=== PATIENT | female | born 1945 | race Caucasian/White ===

== ENCOUNTER 2016-10-01 09:47 | Inpatient (IN) | payer OTHER, MEDICARE ==
[~2016-10-01] VITALS: Ht 157.5 cm; Wt 86.4 kg
[2016-10-01 10:40] LABS: UDS - AMPHET NEGATIVE QUAL (NEGATIVE); UDS - BARB NEGATIVE QUAL (NEGATIVE); UDS - BENZO NEGATIVE QUAL (NEGATIVE); UDS - COCAINE NEGATIVE QUAL (NEGATIVE); UDS - METH NEGATIVE QUAL (NEGATIVE); UDS - OPIATE NEGATIVE QUAL (NEGATIVE); UDS - PCP NEGATIVE QUAL (NEGATIVE); UDS - THC NEGATIVE QUAL (NEGATIVE)
[2016-10-01 10:40] LABS: BASOPHILS 0.3 % (0.0-2.0); EOSINOPHILS 6.1 % (0-7); HEMATOCRIT 34.3 % (36.0-48.0); HEMOGLOBIN 11.3 g/dL (12-16); IMMATURE GRANULOCYTES 0.4 % (0-5); LYMPHOCYTES 12.4 % (15-50); MCH 34.2 pg (26.0-34.0); MCHC 32.9 g/dL (31.0-37.0); MCV 103.9 fL (80.0-100.0); MEAN PLATELET VOLUME 9.1 fL (7.4-10.4); MONOCYTES 14.9 % (2-11); NEUTROPHILS 65.9 % (40-80); PLATELET COUNT 255 10x3/uL (130-400); RDW 13.9 % (11.5-14.5); WBC 7.5 10x3/uL (4.8-10.8)
[2016-10-01 10:58] LABS: ALBUMIN 2.7 g/dL (3.4-5.0); ALKALINE PHOSPHATASE 48 U/L (46-116); ALT (SGPT) 20 U/L (10-68); BILIRUBIN - TOTAL 0.38 mg/dL (0.2-1.3); CALC OSMOLALITY 265 mosm/kg (275-300); CALCIUM 8.4 mg/dL (8.5-10.1); CARBON DIOXIDE 29.6 mmol/L (21.0-32.0); CHLORIDE - SERUM 96 mmol/L (98-107); CREATININE - SERUM 0.6 mg/dL (0.6-1.3); GLUCOSE 94 mg/dL (74-106); MAGNESIUM - SERUM 1.5 mg/dL (1.8-2.4); PROTEIN - SERUM 6.5 g/dL (6.4-8.2); SODIUM 134 mmol/L (136-145); UREA NITROGEN 7 mg/dL (7-18); eGFR NON AFRICAN AMERICAN > 90 mL/min (90-120)
[2016-10-01 11:06] LABS: APPEARANCE HAZY (CLEAR); BILIRUBIN NEGATIVE (NEGATIVE); COLOR YELLOW (YELLOW); GLUCOSE NEGATIVE (NEGATIVE); KETONE NEGATIVE (NEGATIVE); LEUKOCYTE ESTERASE NEGATIVE (NEGATIVE); NITRITE NEGATIVE (NEGATIVE); PROTEIN NEGATIVE (NEGATIVE); UROBILINOGEN NORMAL (NORMAL)
[2016-10-01 11:07] LABS: BACTERIA FEW /hpf (NONE SEEN); EPITHELIAL CELLS OCC /hpf (0-5); RED CELLS - URINE 0-5 /hpf (0-5); WHITE CELLS - URINE OCC /hpf (0-5)
[2016-10-01 14:29] VITALS: BP 178/53; BMI 33.5
[2016-10-01] MEDS ORDERED: LISINOPRIL10 MG PO (14:54)
[2016-10-01] MEDS ORDERED: ATARAX 25 MG TA25 MG PO (14:55)
[2016-10-01] MEDS ORDERED: PROTONIX40 MG PO (14:57)
[2016-10-01] MEDS ORDERED: COREG25 MG PO (14:57)
[2016-10-01] MEDS ORDERED: ATIVAN1 MG (14:58)
[2016-10-01] MEDS ORDERED: ULTRAM50 MG PO (15:04)
--- NOTE | 2016-10-01 15:49 | NUR ---
PATIENT ARRIVED FROM ER VIA STRETCHER. CO BEING WEAK. WARM AND DRY. ON ASSESSMENT, PERINEAL AREA AND UNDER ABDOMEN FOLDS, EXTROCIATION NOTED. ON CRISTEL LEGSHEALED RASH AND SORES NOTED. PATIENT CONFUSED AT TIMES. BANANA BAG HUNG. WILL CONTINUE TO MONITOR.
[2016-10-01 20:00] VITALS: BP 182/84
--- NOTE | 2016-10-01 20:54 | NUR ---
PT IS VERY DEMEANDING. ACTS ENTITLED. PT WILL NOT TAKE NO FOR AN ANSWER. PT REQUESTED ATIVAN. PT INFORMED THAT ATIVAN NOT PART OF EMAR. PT INFORMED AGAIN THAT MEDICATION NOT PART OF EMAR. PT THEN BEGAN ASKING FOR ITEMS THAT ARE NOT STOCKED ON THE UNIT. PT THEN STATED THAT THE NURSE TODAY TOLD HER THAT SHE COULD HAVE IT. PT WAS HANDED ROOM PHONE AND INFORMED THAT FOR ANY FURTHER QUESTIONS SHE WOULD NEED TO DIAL 1441 AND SPEAK TO THE TYRE FINISHER AND EXAMINER.
[2016-10-02] VITALS: BP 196/79
[2016-10-02 04:00] VITALS: BP 183/81
[2016-10-02 05:46] LABS: BASOPHILS 0.5 % (0.0-2.0); EOSINOPHILS 6.7 % (0-7); HEMATOCRIT 32.7 % (36.0-48.0); HEMOGLOBIN 10.3 g/dL (12-16); IMMATURE GRANULOCYTES 0.3 % (0-5); LYMPHOCYTES 19.3 % (15-50); MCH 33.4 pg (26.0-34.0); MCHC 31.5 g/dL (31.0-37.0); MEAN PLATELET VOLUME 9.2 fL (7.4-10.4); MONOCYTES 18.6 % (2-11); NEUTROPHILS 54.6 % (40-80); PLATELET COUNT 290 10x3/uL (130-400); RBC 3.08 10x6/uL (4.00-5.40); RDW 14.4 % (11.5-14.5); WBC 6.4 10x3/uL (4.8-10.8)
[2016-10-02 05:57] LABS: ALBUMIN 2.3 g/dL (3.4-5.0); ALKALINE PHOSPHATASE 47 U/L (46-116); ALT (SGPT) 20 U/L (10-68); CALC OSMOLALITY 266 mosm/kg (275-300); CALCIUM 7.9 mg/dL (8.5-10.1); CARBON DIOXIDE 29.4 mmol/L (21.0-32.0); CHLORIDE - SERUM 99 mmol/L (98-107); CREATININE - SERUM 0.6 mg/dL (0.6-1.3); GLUCOSE 112 mg/dL (74-106); PROTEIN - SERUM 6.1 g/dL (6.4-8.2); SODIUM 134 mmol/L (136-145); UREA NITROGEN 7 mg/dL (7-18); eGFR NON AFRICAN AMERICAN > 90 mL/min (90-120)
[2016-10-02 06:00] LABS: POTASSIUM - SERUM 4.5 mmol/L (3.5-5.1)
[2016-10-02 06:14] LABS: MCV 106.2 fL (80.0-100.0)
--- NOTE | 2016-10-02 07:28 | HP ---
PATIENT: TANISHA RICHEY MEDICAL RECORD: [id number] ACCOUNT: [id number] LOCATION:[address] : [birth year] ADMISSION DATE: 10/01/16 HISTORY AND PHYSICAL EXAMINATION DATE OF ADMISSION: 10/01/2016 REASON FOR ADMISSION: Generalized weakness, confusion and alcohol abuse. HISTORY OF PRESENT ILLNESS: This is a 70-year-old female who I have taken care of for many years. She has a long history of anxiety, depression and chronic back pain. She has been getting weaker and weaker, more confused over the last few weeks to months. She apparently drinks a lot of alcohol, but I really did not know that she does. She probably drinks about 4 ounces of vodka a day. She states she has only been doing that for several weeks. Family says it has been going on for a lot longer. The buys it and admits that he does, so he certainly knows how much he is buying. She went to [facility] weeks ago because the family was trying to get her in to see geriatric specialists up there. She went to the ER, basically they told her she had a UTI and discharge her home. Family states she is becoming more disoriented and confused. They state she complains of being out of breath just standing. She cannot walk very far at all without being short of breath. She is not bathing. She is not taking care of herself. She has increased swelling to her face and body. She does not want to live the house. She has been on antidepressants for many years and apparently when living in [place] 10-12 years ago, she had significant mental health issue ____, but I do not have any records about that. She went to a walk-in clinic out [address] a week or more ago and was treated for a UTI. The quantity was insufficient to culture. Her bought her a new lift chair to help her get up. She was on it last night. She was confused, did not know how to use it and she somehow slid out of the chair on to the floor and she stayed there basically all night long. The report is she has had increased weakness that has really gotten severe in the last few days. In the ER, potassium was 3.0. Urinalysis looked okay. Alcohol level was 15 with 0-10 being considered normal. She is admitted for all her magnesium level was low. She is admitted for electrolyte imbalance, alcohol abuse, depression and weakness. PAST MEDICAL AND SURGICAL HISTORY: She has had left knee replacement for arthritis. She has had ORIF of a right ankle fracture. She has a history of anxiety and depression. She had a benign lumpectomy in July 2010. She had back surgery over 30 years ago. She has a chronic back pain followed by Dr. Poe. MRI in 2009 showing arthritis, bulging discs, herniated disc at L3-L4, mild spinal stenosis and old compression fracture at L2. In May 2012, she was admitted to [facility] for chest pain. She had a cath showing normal arteries, but showed an "apical ballooning" consistent with takotsubo syndrome. Her echo showed EF in the 20%. She had an EGD showing a grade II esophagitis due to reflux and some gastritis. Ultrasound of the abdomen showed gallstones with no acute cholecystitis. She has had an appendectomy and hysterectomy as well. HOME MEDICATIONS: Carvedilol 25 mg twice a day, lisinopril 10 mg twice a day, Ativan 1 mg t.i.d. p.r.n. anxiety, hydroxyzine 25 mg tablets one q.4 hours p.r.n. itching, tramadol 50 mg 1 p.o. q.4 hours p.r.n. pain, (she used to be on Percocet and then taking down to hydrocodone and now on tramadol) and Protonix 40 mg twice a day. HISTORY AND PHYSICAL [id number] TANISHA RICHEY ALLERGIES: CODEINE, DEMEROL, CEPHALEXIN AND TETRACYCLINE. HABITS: Quit smoking in 1982. Alcohol use, the story I have always gotten is she drinks an alcoholic beverage a day, but finding out otherwise now. SOCIAL HISTORY: She does not work. She lives with her . FAMILY HISTORY: Father in a car wreck. Mother had hypertension, heart disease and arthritis. One brother with hypertension and diabetes. Another brother with hypertension. REVIEW OF SYSTEMS: GENERAL: She is gaining weight, has had an increased swelling. HEENT: No particular sinus or allergy problems. RESPIRATORY: No history of emphysema or COPD. CARDIAC: No coronary artery disease. She did have the takotsubo syndrome in 2011. GASTROINTESTINAL: She had an EGD done in 2011. No hep C done then. MUSCULOSKELETAL: She has had arthritic aches and pains and joint replacement and the back as mentioned above. NEUROLOGIC: No seizures or migraine headaches. PSYCHIATRIC: She has anxiety and depression. PHYSICAL EXAMINATION: VITAL SIGNS: Temperature 98.2, pulse 83, respirations 18 and blood pressure 178/53. GENERAL: This is an obese white female, who does not appear to be in acute distress. She is awake and alert. SKIN: Warm and dry. HEENT: Grossly within normal limits. NECK: Supple, no JVD. HEART: Regular rate and rhythm without murmur. LUNGS: A few scattered rales. ABDOMEN: Obese, soft, nontender at this time. I do not feel enlarged liver. EXTREMITIES: She has 1-2+ pitting edema and did not get her up to walk. LABORATORY DATA: CBC with a white count of 7500, hemoglobin 11.3, hematocrit 34.3, MCV is high at 103.9. Sodium 134, potassium 3.0, chloride 96, CO2 of 29, BUN 7, creatinine 0.6, glucose 94, calcium 8.4, magnesium low at 1.5. Total bilirubin normal at 0.38. AST 30 and ALT 20. Alkaline phosphatase is 48. Albumin is low at 2.7. Alcohol level is 15.0 (normal 0.0-10.0). Urine drug screen is negative for everything even though she reportedly takes lorazepam 3 times a day. Urinalysis with trace amount of blood, and few bacteria. DIAGNOSTIC DATA: No x-rays were done. ASSESSMENT: 1. Hypokalemia. 2. Hypomagnesemia. 3. Alcohol abuse. 4. Generalized weakness. 5. Depression. PLAN: We will replace potassium and replace magnesium. We will find out who did EGD in the past and ask GI to see. We will consider a consult to HISTORY AND PHYSICAL [id number] TANISHA RICHEY psychiatry. I think she has severe depression at this time. She is given a banana bag and we will be watching her closely for DTs. Other tests and procedures as warranted. TRANSINT:[id number] Voice Confirmation ID: [id number] DOCUMENT ID: [id number] MARY AMAYA MD at 0728 CC: [id number] DICTATION DATE: 10/01/16 185 WAREHOUSE ATTENDANT: 10/01/162112 ADM IN [facility] [address] [place] [address]
[2016-10-02] MEDS ORDERED: ATIVAN1 MG PO (08:06)
[2016-10-02 08:08] VITALS: BP 212/78
[2016-10-02 12:27] VITALS: BP 146/47
[2016-10-02 12:32] VITALS: Ht 157.5 cm; Wt 86.4 kg
[2016-10-02 16:00] VITALS: BP 154/64
[2016-10-02 20:00] VITALS: BP 163/62
--- NOTE | 2016-10-02 20:38 | NUR ---
PT LYING IN BED. DEMENDING ATIVAN AGAIN. EXPLAINED TO PT THAT SHE HAD ATIVAN AT 5PM. PT STATED THAT SHE WAS SUPPOSED TO HAVE IT EVERY 4 HOURS. PT WAS INFORMED THAT ATIVAN WAS ORDERED PRN. AND THAT MENT THAT IT WAS ONLY TO BE GIVEN IF THE PT REQUESTED IT, NOT THAT IT WOULD BE BROUGHT TO HER. PT THEN ASKED AGAIN WHEN SHE COULD HAVE IT. PT WAS INFORMED THAT SHE WASNT ELIGEBLE FOR IT UNTILL 9PM. PT THEN STATED THAT SHE WANTED IT. PT THEN WAS GIVEN APLICATION OF TEMOVATE, WHICH TURNED INTO AN ENTIRE BODY APPLICATION. PT STATED THAT IT NEEDED TO BE PUT ON HER "SORES". PT WAS OBSERVED UPON ENTERING THE ROOM TO BE PICKING AT HER SKIN. THE SORES THAT PT SPOKE OF ARE ONLY PRESENT ON AREAS OF THE BODY THAT PT CAN REACH, SHOULDERS, LOWER BACK, FRONT OF LEGS. PTS UPPER MIDDLE BACK POSSESED NO SORES OR WOUNDS. ENTIRE TUBE OF CREAM WAS USED IN THE PROCESS
--- NOTE | 2016-10-02 21:59 | NUR ---
INFORMED BY AID THAT PT IS NOW CONSERNED THAT NURSING STAFF ARE TALKING ABOUT HER WITHOUT HER KNOWLEDGE.
[2016-10-03] VITALS: BP 159/68
--- NOTE | 2016-10-03 00:10 | NUR ---
SHEAR OPERATOR AUTOMATIC AT BEDSIDE TO OBTAIN VITALS, CALL LIGHT IN REACH. WILL CONTINUE WITH PLAN OF CARE.
[2016-10-03 05:39] LABS: BASOPHILS 0.4 % (0.0-2.0); EOSINOPHILS 10.7 % (0-7); HEMATOCRIT 30.2 % (36.0-48.0); HEMOGLOBIN 9.7 g/dL (12-16); IMMATURE GRANULOCYTES 0.1 % (0-5); LYMPHOCYTES 19.5 % (15-50); MCH 34.2 pg (26.0-34.0); MCHC 32.1 g/dL (31.0-37.0); MCV 106.3 fL (80.0-100.0); MEAN PLATELET VOLUME 9.1 fL (7.4-10.4); NEUTROPHILS 52.3 % (40-80); PLATELET COUNT 253 10x3/uL (130-400); RBC 2.84 10x6/uL (4.00-5.40); RDW 14.4 % (11.5-14.5); WBC 7.2 10x3/uL (4.8-10.8)
[2016-10-03 06:01] LABS: ALBUMIN 2.3 g/dL (3.4-5.0); ALKALINE PHOSPHATASE 39 U/L (46-116); ALT (SGPT) 20 U/L (10-68); BILIRUBIN - TOTAL 0.38 mg/dL (0.2-1.3); CALC OSMOLALITY 267 mosm/kg (275-300); CARBON DIOXIDE 29.8 mmol/L (21.0-32.0); CHLORIDE - SERUM 99 mmol/L (98-107); CREATININE - SERUM 0.7 mg/dL (0.6-1.3); GLUCOSE 114 mg/dL (74-106); POTASSIUM - SERUM 4.2 mmol/L (3.5-5.1); PROTEIN - SERUM 5.7 g/dL (6.4-8.2); SODIUM 134 mmol/L (136-145); eGFR NON AFRICAN AMERICAN 88 mL/min (90-120)
[2016-10-03 06:13] LABS: UREA NITROGEN 10 mg/dL (7-18)
--- NOTE | 2016-10-03 07:00 | NUR ---
Pt. was received at the beginning of this shift in bed and awake. Pt. continues to be oriented x 3. Vital signs wnl. 02 per nc going at 2L/min. Rt. wrist IV is saline locked. Telementry is on and working. No voiced complaints at this time. Will be monitoring pt. and assisting prn with adl's. Call light is in reach.
[2016-10-03 08:00] VITALS: BP 147/69
[2016-10-03 12:00] VITALS: BP 171/81
[2016-10-03 13:55] LABS: APPEARANCE CLOUDY (CLEAR); BILIRUBIN NEGATIVE (NEGATIVE); COLOR YELLOW (YELLOW); GLUCOSE NEGATIVE (NEGATIVE); KETONE NEGATIVE (NEGATIVE); LEUKOCYTE ESTERASE 1+ (NEGATIVE); NITRITE NEGATIVE (NEGATIVE); PROTEIN NEGATIVE (NEGATIVE); SPECIFIC GRAVITY 1.015 (1.005-1.020); UROBILINOGEN NORMAL (NORMAL)
[2016-10-03 13:56] LABS: BACTERIA MANY /hpf (NONE SEEN); EPITHELIAL CELLS 0-5 /hpf (0-5); RED CELLS - URINE 0-5 /hpf (0-5)
[2016-10-03 16:00] VITALS: BP 141/63
--- NOTE | 2016-10-03 17:35 | NUR ---
Pt. has had prn pain medication, nerve medication and itching medication throughout this shift. Continuing to observe. Dr. Anthony rounded this am.
--- NOTE | 2016-10-03 19:20 | NUR ---
RECEIVED REPORT, 022L, [id number], [id number], DENIES ANY NEEDS, BED IS LOW, SRX 2, CALL LIGHT IN REACH, WILL CONTINUE TO MONITOR
[2016-10-03 21:01] VITALS: BP 177/76
--- NOTE | 2016-10-03 23:59 | NUR ---
NO CHANGES NOTED IN ASSESSMENT. NO NEEDS VOICED. CALL LIGHT WITHIN REACH. WILL CONT TO MONITOR.
[2016-10-04 01:01] VITALS: BP 178/70
--- NOTE | 2016-10-04 04:28 | NUR ---
ASSESSMENT COMPLETE, PT SLEEPING, CALL LIGHT IN REACH, BED IS LOW, SRX2
[2016-10-04 04:57] VITALS: BP 115/97
[2016-10-04 05:35] LABS: % SATURATION 16 % (15-55); IRON 26 ug/dl (35-150); TOTAL IRON BIND CAPACITY 158 ug/dl (260-445); UNSAT IRON BIND CAPACITY 132 ug/dl (150-375)
[2016-10-04 08:06] VITALS: BP 205/85
[2016-10-04 12:00] VITALS: BP 187/80
--- NOTE | 2016-10-04 14:13 | NUR ---
PT ASSESSMENT COMPLETED PT LAYING IN BED AND ASSISTED TO BEDPAN 2X NO BM AT THIS TIME. RESPERATIONS EVEN AND UNLABORED CALL LIGHT IN REACH SRX2 IVP SALINE LOCKED FLUSHED WITH 10CC NORMAL SALINE NO INFILTRATION OBSERVED NO DISTRESS OBSERVED WILL MONITOR
[2016-10-04 15:33] VITALS: BP 195/79
--- NOTE | 2016-10-04 15:43 | NUR ---
PT LAYING IN BED C/O NAUSEA AND ITCHING MEDS ADMIN ORDERED AND FAMILY IN ROOM AT SIDE CALL LIGHT IN REACH SRX2 BED LOW AND LOCKED WILL MONITOR
--- NOTE | 2016-10-04 17:04 | NUR ---
PT LAYING IN BED NO DISTRESS OBSERVED CALL LIGHT IN REACH SRX2 BED LOW AND LOCKED NO DISTRESS OBSERVED WILL MONITOR
[2016-10-04 20:00] VITALS: BP 205/91
[2016-10-05] VITALS: BP 201/98
[2016-10-05 04:00] VITALS: BP 191/92
--- NOTE | 2016-10-05 06:10 | CN ---
PATIENT NAME:TANISHA RICHEY MEDICAL RECORD: [id number] : 45 [address]ATION:[address] ADMIT DATE: 10/01/16 ACCOUNT: [id number] CONSULTING PHYSICIAN: VA HOUSE III, MD REFERRING PHYSICIAN: MARY AMAYA MD DATE OF CONSULTATION: 10/03/2016 FINDINGS: A 70-year-old white female who has a long past history of depression and apparent alcohol use as well. The patient was admitted to the hospital because of progressive weakness and episodic confusion and disorientation. Current history indicates the patient is drinking on a regular basis. She has been tried on numerous different antidepressants over the years with varying degrees of success. She has had outpatient psychiatric treatment in the past as well. In recent weeks, she has exhibited significant self neglect, progressive weakness and inattention to her usual responsibilities. PAST MEDICAL HISTORY: Significant for numerous problems including arthritis and disc disease as well as organic heart disease and GI problems. FAMILY HISTORY: Noncontributory. SOCIAL HISTORY: The patient is . She is unemployed. MENTAL STATUS: On exam, the patient is pleasant. She states that she thinks that she has met the examiner in the past, but cannot remember clearly. Mood is euthymic. Affect is bland. Speech is fairly fluent. Content of thought is negative for overt psychosis. The patient is oriented to person, place, month, and year. Concentration is rather poor and the patient has difficulty with sequencing. DIAGNOSTIC IMPRESSION: AXIS I: Major depressive disorder -- recurrent, alcohol abuse. RECOMMENDATION: 1. We will increase Lexapro to 20 mg daily. 2. Add naltrexone 50 mg q.h.s. (the rationale behind using this medication was explained to the patient and she was agreeable to take it on a routine basis in order to curb the urge to drink). 3. We will remain available for further input as needed. TRANSINT:[id number] Voice Confirmation ID: [id number] DOCUMENT ID: [id number] VA HOUSE III, MD at 0610 CC: [id number] DICTATION DATE: 10/03/16 1223 DRAIN CLEANER PLUMBER: 10/03/16 1753 [place] [address]
[2016-10-05 07:00] VITALS: BP 222/95
[2016-10-05 11:56] VITALS: BP 165/87
--- NOTE | 2016-10-05 14:00 | NUR ---
PT LAYING IN BED AT THIS TIME PT WAS UP WITH PT AND AMBULATED 250 FT APPX WITH MINIMMAL ASSISTANCE NEEDED RESPERATIONS EVEN AND UNLABORED. FAMILY C/O BREATHING ISSUES AND REASSESSED LUNGS BILATERAL LUNG SOUNDS CLEAR AND NO DISTRESS OBSERVED WILL MONITOR
--- NOTE | 2016-10-05 14:57 | NUR ---
PT UP WTH PT AT THIS TIME AMBULATING IN HALLS NO DISTRESS OBSERVED WILL MONITOR
[2016-10-05 16:00] VITALS: BP 162/82
--- NOTE | 2016-10-05 16:32 | NUR ---
PT SITTING IN CHAIR AT BEDSIDE WITH FAMILY IN ROOM
--- NOTE | 2016-10-05 16:46 | NUR ---
PT ASSISTED BACK TO BED AT THIS TIME
[2016-10-05 20:00] VITALS: BP 147/74
--- NOTE | 2016-10-05 20:38 | NUR ---
REC'D.ATTEMPTED TO PULL UP IN BED AND REPOSITION. REFUSED STATES DO YOU KNOW I'M FINALLY COMFORTABLE IN THIS SPOT AND YOU WANT TO MOVE ME.WILL CONTINUE TO MONITOR FOR ANY CHGES AND FOLLOW CURRENT PLAN OF CARE.
[2016-10-06] VITALS: BP 170/73
--- NOTE | 2016-10-06 00:22 | NUR ---
ACTUARY CLERK AT BEDSIDE FOR VS. NEEDS ADDRESSED, CALL LIGHT IN REACH. WILL CONT TO MONITOR.
[2016-10-06 04:00] VITALS: BP 184/84
--- NOTE | 2016-10-06 07:33 | NUR ---
RECEIVED PT REPORT. NO OTHER NEEDS AT THIS TIME. WILL CONTINUE PLAN OF CARE.
[2016-10-06 07:42] VITALS: BP 187/82; BP 76/30
[2016-10-06 11:50] VITALS: BP 153/81; BP 80/34
--- NOTE | 2016-10-06 12:08 | NUR ---
PT IS ALERT. ASSESSMENT DONE PER FLOWSHEET. NO OTHER NEEDS AT THIS TIME. WILOL CONTINUE TO MONITR.,
[2016-10-06 12:12] LABS: FOLATE (FOLIC ACID) - SERUM 2.8 ng/mL (>3.0)
--- NOTE | 2016-10-06 13:18 | NUR ---
PT IS ALERT. NO OTHER NEEDS AT THIS TIME. WILL CONTINUE TO MONITOR.
[2016-10-06 16:01] VITALS: BP 169/77
--- NOTE | 2016-10-06 17:23 | NUR ---
Patient Name: TANISHA RICHEY Admission Status: ER Accout number: [id number] Admission Date: 10-01-2016 : 1945 Admission Diagnosis: Attending: MARKOS Current LOS: 5 Anticipated DC Date: 10-07-2016 Planned Disposition: Home with Home Health Primary Insurance: [facility] PPO Discharge Planning Comments: * Is the patient Alert and Oriented? Yes 0 * How many steps to enter\exit or inside your home? 2 0 * PCP DR. AMAYA 0 * Pharmacy [facility] 0 * Preadmission Environment Home with Family 0 * ADLs Independent 0 * Equipment Other Rolling Walker Tub Bench Walker 0 * Other Equipment LIFT CHAIR NO MEDICAL EQUIPMENT PROVIDER PREFERENCE 0 * List name and contact numbers for known caregivers / representatives who currently or will assist patient after discharge: MARK RICHEY, SPOUSE, ; Nicole King, dtr, [phone] * Community resources currently utilized None 0 * Please name any agencies selected above. NONE 0 * Additional services required to return to the preadmission environment? Yes * Can the patient safely return to the preadmission environment? Yes 0 * Has this patient been hospitalized within the prior 30 days at any hospital? No 0 CM RECEIVED ORDER, MET WITH PT IN ROOM TO DISCUSS DISCHARGE PLANNING AND NEEDS. PT REPORTS LIVING AT HOME INDEPENDENTLY WITH HER SPOUSE. PT HAS A TUB BENCH, TWO WALKERS, ONE WITH WHEELS AND SEAT AND THE OTHER IS A STANDARD AND A LIFT RECLINER CHAIR. PT HAS NO MEDICAL EQUIPMENT PROVIDER PREFERNCE AND NO OUTSIDE SERVICES ASSISTING IN THE HOME. CM DISCUSSED AVAILABILITY OF HOME HEALTH, REHAB SERVICES AND MEDICAL EQUIPMENT. CM DISCUSSED ORDER FOR OUTPATIENT RHEAB SERVICES AND OUTPATIENT COUNSELING FOR DEPRESSION. PT DECLINES OUTPATIENT COUNSELING, REPORTS SHE HAS BEEN DOWN THAT ROAD BEFORE AND DID NOT FIND IT TO BE BENEFICIAL. CM OFFERED COUNSELING INFORMATION ON LOCAL PROVIDERS, PT DECLINED. PT DOES NOT WANT TO HAVE OUTPATIENT REHAB SERVICES, PT WANTS TO GO HOME WITH HOME HEALTH. PT HAS NO HOME HEALTH PROVIDER PREFERENCE. PT REPORTS HER FAMILY WILL PICK HER UP IN PT'S CAR FOR DISCHARGE HOME. IMPORTANT MESSAGE FROM MEDICARE PROVIDED AND EXPLAINED. HOME HEALTH CHOICE FORM SIGNED INDICATING NO PREFERENCE ON PROVIDER. PT DECLINES OUTPATIENT COUNSELING AND OUTPATIENT REHAB SERVICES. PT REPORTS PLAN TO GO HOME AND WOULD LIKE PHYSICAL THERAPY THROUGH HOME HEALTH. PT WILL SPEAK TO IN THE MORNING. CM TO FOLLOW AND ASSIST NEEDED. Foreign Exchange Student Coordinator: Earl Yi
[2016-10-06 20:00] VITALS: BP 167/70
--- NOTE | 2016-10-06 23:38 | NUR ---
WET SANDER AT BEDSIDE FOR VS, NEEDS ADDRESSED AT THIS TIME. CALL LIGHT IN REACH. CONT TO MONITOR.
[2016-10-07] VITALS: BP 157/75
[2016-10-07 04:00] VITALS: BP 168/71
[2016-10-07 07:52] VITALS: BP 171/77
--- NOTE | 2016-10-07 08:15 | NUR ---
received pt report. no other needs at this time. will continue plan of care. no other needs at this time.
[2016-10-07 11:34] VITALS: BP 177/83
--- NOTE | 2016-10-07 12:26 | NUR ---
PT IS ALERT. NO SS OF DISTRESS WILL CONTINUE TO MONITOR.
--- NOTE | 2016-10-07 12:56 | NUR ---
Nutrition follow-up: Diet: Low sodium PO intake 100% of last 3 meals Labs reviewed +BM Wt: 190# PO intake is good at this time. RDN following.
--- NOTE | 2016-10-07 13:32 | NUR ---
PT IS ALERT. ASSESSMENT DONE PER FLOWSHEET. NO OTHER NEEDS AT THIS TIME.
[2016-10-07] MEDS ORDERED: LISINOPRIL10 MG PO (13:47)
[2016-10-07] MEDS ORDERED: CARDIZEM CD120 MG PO (13:47)
[2016-10-07] MEDS ORDERED: NALTREXONE HCL50 MG PO (13:48)
--- NOTE | 2016-10-07 14:47 | NUR ---
Patient Name: TANISHA RICHEY Encounter No: [id number] : 1945 Primary Insurance: [employer] PPO Anticipated DC Date: 10-07-2016 Planned Disposition: Home with Home Health External Planned Provider: [facility] DCP follow-up note: CM RECEIVED DISCHARGE AND HOME HEALTH ORDER, MET WITH PT IN ROOM. PT CONTINUES TO REFUSE REHAB PLACEMENT, OUTPATIENT REHAB SERVICES AND OUTPATIENT PSYCHIATRIC COUNSELING. PT WANTS TO DISCHARGE HOME AND WILL ACCEPT HOME HEALTH WITH Weesh [facility]. PT REPORTS HER SPOUSE WILL BE PICKING HER UP TODAY. PT ASKED THAT HOME HEALTH CALL HER AND SCHEDULE THE APPOINTMENT FOR HOME HEALTH ADMISSION AFTER TOMORROW. PT DENIES FURTHER DISCHARGE NEEDS. CM CALLED Weesh [facility], , PROVIDED REFERRAL INFORMATION TO YULISSA AND FAXED REFERRAL TO Weesh AT [phone]. CM DISCUSSED PT'S REQUEST FOR HOME HEALTH ADMISSION SOME TIME AFTER TOMORROW AT HOME. YULISSA WILL CALL PT AND SCHEDULE HOME HEALTH FOLLOW UP WITH THE PATIENT. Earl Yi, CASE MANAGEMENT
== END 2016-10-07 15:24 | disposition home health service (06) | DRG 948 ==
LOC: D.ER 09:47 → D.M2 11:25 → OBSVTIME 11:25 → D.M2 11:25
PROVIDERS: Emergency Medicine; Nurse Practitioner Acute Care; ADMIT Family Medicine
DX: R53.1 Weakness (principal); F10.230 Alcohol dependence with withdrawal, uncomplicated; F33.9 Major depressive disorder, recurrent, unspecified; R41.0 Disorientation, unspecified; F41.9 Anxiety disorder, unspecified; G89.29 Other chronic pain; M54.9 Dorsalgia, unspecified; E87.6 Hypokalemia; E83.42 Hypomagnesemia; D53.9 Nutritional anemia, unspecified; I10 Essential (primary) hypertension

== ENCOUNTER → 2016-11-03 14:15 | Outpatient (CLI) | payer OTHER, MEDICARE ==
[2016-10-02 12:32] VITALS: BMI 34.6
[~2016-11-03 14:15] MED LIST: ATARAX 25 MG TA25 MG PO; ATIVAN1 MG; ATIVAN1 MG PO; CARDIZEM CD120 MG PO; COREG25 MG PO; LISINOPRIL10 MG PO; NALTREXONE HCL50 MG PO; PROTONIX40 MG PO; ULTRAM50 MG PO
== END | disposition home or self-care (01) ==
LOC: D.US 14:15
DX: R51 Headache (principal); R26.9 Unspecified abnormalities of gait and mobility; G45.9 Transient cerebral ischemic attack, unspecified

== ENCOUNTER 2018-11-14 18:12 | Inpatient (IN) | payer OTHER, MEDICARE ==
[~2018-11-14] VITALS: Ht 157.5 cm; Wt 113.6 kg
--- NOTE | ~2018-11-14 | OP ---
PATIENT NAME: TANISHA RICHEY MEDICAL RECORD: [id number] :45 LOCATION:[address] ADMISSION DATE:11/14/18 SURGEON: NARAYAN KWONG MD DATE OF OPERATION: 11/16/2018 PREOPERATIVE DIAGNOSES: 1. Acute cholecystitis. 2. Elevated transaminase. 3. Cholelithiasis. 4. Gastroesophageal reflux disease. POSTOPERATIVE DIAGNOSES: 1. Acute cholecystitis. 2. Elevated transaminase. 3. Cholelithiasis. 4. Gastroesophageal reflux disease. PROCEDURES: 1. Laparoscopic cholecystectomy. 2. Colt-Cut liver biopsy. SURGEON: Narayan Kwong MD BULLARD OPERATOR: Caitlyn Oh APRN REPORT OF PROCEDURE: The patient's abdomen was prepped and draped in sterile fashion. A cutdown was made on the superior aspect of the umbilicus, 0 Vicryls were placed in the fascia bilaterally and the fascia was incised with 15-blade. I then bluntly entered the peritoneal cavity and placed a 12-mm Dominick port. Under direct visualization, a 5-mm trocar was placed in the epigastrium and two more 5-mm trocars were placed in the right subcostal region. The gallbladder was elevated. There were no acute inflammatory changes, but the gallbladder was distended and difficult to grasp. Upon grasping the gallbladder, there was penetration with spillage of bile, but no sign of any stones. The cystic artery and cystic duct were dissected free and these structures were clipped proximally and distally and ligated in standard fashion. The gallbladder was then taken off the liver bed using electrocautery and placed into an Endo Catch bag. The right upper quadrant was irrigated out and any bleeding from the liver bed was treated with electrocautery. We then inspected the patient's liver, which had some acute inflammatory changes present, but no signs of cirrhotic changes. The Colt-Cut liver biopsy tool was brought through our trocar and four biopsies were taken from the right side of the liver. Any bleeding from these sites were treated with electrocautery until this was discontinued. At this point, the ports and insufflation were then removed. The gallbladder was taken out through the umbilicus. The umbilical fascia was closed with interrupted 0 Vicryls times 3. The wounds were then irrigated out with normal saline, infused with 10 mL of 0.25% Marcaine with epinephrine. The skin incisions were all closed with subcutaneous 5-0 Monocryl and dressed appropriately. COMPLICATIONS: None. CONDITION: Stable. ANESTHESIA: General endotracheal and local. OPERATIVE REPORT [id number] TANISHA RICHEY BLOOD LOSS: Minimal. TRANSINT:[id number] Voice Confirmation ID: [id number] DOCUMENT ID: [id number] NARAYAN KWONG MD CC: [id number] DICTATION DATE: 11/16/18 1131 TECHNOLOGY CONSULTANT: 11/16/18 1333 ADM IN [place] [id number] [place] [address]
[2018-11-14 18:33] LABS: BASOPHILS 0.1 % (0-2); EOSINOPHILS 0.8 % (0-7); HEMATOCRIT 36.7 % (36.0-48.0); HEMOGLOBIN 12.2 g/dL (12-16); IMMATURE GRANULOCYTES 0.4 % (0-5); LYMPHOCYTES 8.1 % (15-50); MCH 30.3 pg (26.0-34.0); MCHC 33.2 g/dL (31.0-37.0); MCV 91.1 fL (80.0-100.0); MEAN PLATELET VOLUME 9.2 fL (7.4-10.4); MONOCYTES 7.3 % (2-11); NEUTROPHILS 83.3 % (40-80); PLATELET COUNT 272 10x3/uL (130-400); RBC 4.03 10x6/uL (4.00-5.40); RDW 13.3 % (11.5-14.5); WBC 18.7 10x3/uL (4.8-10.8)
[2018-11-14 18:52] LABS: APTT 30.2 SECONDS (22.8-39.4); INR 1.04 (0.85-1.17); PROTIME 13.2 SECONDS (11.6-15.0)
[2018-11-14 18:56] LABS: ALBUMIN 3.4 g/dL (3.4-5.0); ALKALINE PHOSPHATASE 116 U/L (46-116); ALT (SGPT) 164 U/L (10-68); BILIRUBIN - TOTAL 0.67 mg/dL (0.2-1.3); CALC OSMOLALITY 284 mosm/kg (275-300); CALCIUM 8.5 mg/dL (8.5-10.1); CARBON DIOXIDE 30.2 mmol/L (21.0-32.0); CHLORIDE - SERUM 100 mmol/L (98-107); CREATININE - SERUM 0.8 mg/dL (0.6-1.3); GLUCOSE 147 mg/dL (74-106); POTASSIUM - SERUM 4.2 mmol/L (3.5-5.1); PROTEIN - SERUM 7.6 g/dL (6.4-8.2); SODIUM 138 mmol/L (136-145); UREA NITROGEN 28 mg/dL (7-18); eGFR NON AFRICAN AMERICAN 74 mL/min (90-120)
[2018-11-14 19:00] VITALS: BP 150/62
[2018-11-14 19:08] LABS: CKMB 1.1 U/L (0.0-3.6); CREATINE KINASE 89 UL (21-215); MAGNESIUM - SERUM 1.9 mg/dL (1.8-2.4)
[2018-11-14 19:10] LABS: TROPONIN-I < 0.017 ng/mL (0.000-0.060)
[2018-11-14 19:25] LABS: AMYLASE - SERUM 85 U/L (25-115); LIPASE 171 U/L (73-393)
[2018-11-14 20:00] VITALS: BP 152/62
[2018-11-14 20:08] LABS: APPEARANCE CLEAR (CLEAR); BILIRUBIN NEGATIVE (NEGATIVE); COLOR YELLOW (YELLOW); GLUCOSE NEGATIVE (NEGATIVE); KETONE SMALL mg/dL (NEGATIVE); NITRITE NEGATIVE (NEGATIVE); PROTEIN NEGATIVE (NEGATIVE); SPECIFIC GRAVITY 1.015 (1.005-1.020); UROBILINOGEN NORMAL (NORMAL)
[2018-11-14 20:54] VITALS: BP 163/62
[2018-11-14 22:00] VITALS: BP 156/53
--- NOTE | 2018-11-14 23:00 | NUR ---
RECIEVED TRANSFER REPORT FROM MIKE VEGA. PT INITIAL VSS, AAOX4, RR EVEN AND UNLABORED. NO S/S OF RR DISTRESS. PT NPO AFTER MIDNIGHT. ARRIVED FLOOR ON BED. IV 20G ON R.WRIST. ZOSYN 3.375G INFUSING ON ARRIVAL. 2L NC 02SAT 96. ADMISSION ASSESSMENT COMPLETED. PT DENIES ANY FURTHER NEEDS AT THIS TIME. WILL CPOC. CL IN REACH, BED IN LOW, SR UP X2.
[2018-11-14 23:18] VITALS: BP 132/52; BMI 47.5
[2018-11-15] VITALS (7 sets, daily range): BP systolic 110–144; BP diastolic 46–90; Ht 157.5 cm; Wt 113.6 kg
--- NOTE | 2018-11-15 00:45 | NUR ---
PT C/O ABDOMINAL PAIN O.25ML OF DILAUDID GIVEN AT THIS TIME. ASSIST PT ON THE BED DAVIS. WILL CTM. CL IN REACH, BED IN LOW, SR UP X2.
--- NOTE | 2018-11-15 04:42 | NUR ---
I have reviewed this patient and I concur with the Shift Assessment completed by the Licensed Practical Nurse today this shift.
[2018-11-15 05:35] LABS: BASOPHILS 0 % (0-2); HEMATOCRIT 32.5 % (36.0-48.0); HEMOGLOBIN 10.8 g/dL (12-16); IMMATURE GRANULOCYTES 0.1 % (0-5); LYMPHOCYTES 13.4 % (15-50); MCH 29.9 pg (26.0-34.0); MCHC 33.2 g/dL (31.0-37.0); MEAN PLATELET VOLUME 9.4 fL (7.4-10.4); MONOCYTES 8.9 % (2-11); NEUTROPHILS 76.6 % (40-80); PLATELET COUNT 256 10x3/uL (130-400); RBC 3.61 10x6/uL (4.00-5.40); RDW 13.3 % (11.5-14.5)
[2018-11-15 05:36] LABS: WBC 10.7 10x3/uL (4.8-10.8)
[2018-11-15 06:05] LABS: ALBUMIN 2.6 g/dL (3.4-5.0); ANION GAP 11.9 mmol/L (8-16); BILIRUBIN - TOTAL 0.4 mg/dL (0.2-1.3); CALCIUM 7.6 mg/dL (8.5-10.1); CARBON DIOXIDE 26.9 mmol/L (21.0-32.0); POTASSIUM - SERUM 3.8 mmol/L (3.5-5.1)
[2018-11-15 06:08] LABS: CREATININE - SERUM 1.1 mg/dL (0.6-1.3)
--- NOTE | 2018-11-15 06:50 | NUR ---
PT C/O ABDOMINAL PAIN. IV DILAUDID GIVEN AT THIS TIME. WILL CTM.
--- NOTE | 2018-11-15 10:31 | NUR ---
PT C/O ABDOMINAL PAIN REQUESTING AND PROVIDED WITH PRN PAIN MEDICATION. PTS FAMILY STATES HER LIPS ARE SWOLLEN HOWEVER I CANT TELL JERI NEVER HAD HER BEFORE. PT ALSO C/O HER THROAT FEELING SORE. UPON MEETING HER I DIDNT NOTICE ANY SPLOTCHES BUT NOW BILAT ARMS HAVE RANDOM RED SPLOTCHES THAT ARE ITCHY AND RAISED. PAGED PRIMARY UNSURE IF ITS A REACTION TO HER DILAUDID OR ZOSYN BOTH ARE NEW FOR HER. WILL D/C DILAUDID PER NEW ORDER AND CTM.
[2018-11-15 16:28] LABS: ALBUMIN 2.9 g/dL (3.4-5.0); ANION GAP 12.2 mmol/L (8-16); BILIRUBIN - TOTAL 0.41 mg/dL (0.2-1.3); CALCIUM 7.8 mg/dL (8.5-10.1); CARBON DIOXIDE 25.5 mmol/L (21.0-32.0); CREATININE - SERUM 1.1 mg/dL (0.6-1.3); POTASSIUM - SERUM 3.7 mmol/L (3.5-5.1); PROTEIN - SERUM 6.6 g/dL (6.4-8.2)
--- NOTE | 2018-11-15 19:44 | NUR ---
PATIENT LAYING IN BED WITH NO COMPLAINTS AT THIS TIME. NO DISTRESS NOTED.
[2018-11-16 03:39] VITALS: BP 128/46
--- NOTE | 2018-11-16 05:26 | NUR ---
I have reviewed this patient and I concur with the Shift Assessment completed by the Licensed Practical Nurse today this shift.
[2018-11-16 08:13] LABS: BASOPHILS 0 % (0-2); EOSINOPHILS 0.1 % (0-7); HEMATOCRIT 31.2 % (36.0-48.0); HEMOGLOBIN 10.5 g/dL (12-16); IMMATURE GRANULOCYTES 0.3 % (0-5); LYMPHOCYTES 13.9 % (15-50); MCHC 33.7 g/dL (31.0-37.0); MEAN PLATELET VOLUME 9.5 fL (7.4-10.4); MONOCYTES 6.5 % (2-11); NEUTROPHILS 79.2 % (40-80); PLATELET COUNT 272 10x3/uL (130-400); RBC 3.39 10x6/uL (4.00-5.40); RDW 13.8 % (11.5-14.5); WBC 10.8 10x3/uL (4.8-10.8)
--- NOTE | 2018-11-16 08:13 | NUR ---
CONSENTS OBTAINED AND PLACED IN CHART. PT READY FOR PROCEDURE REMAINS NPO AND AWAITS SURGERY. CL IN REACH, BED IN LOWEST, SIDE RAILS X2. WILL CTM.
[2018-11-16 08:54] VITALS: BP 143/43
--- NOTE | 2018-11-16 10:13 | NUR ---
PT LEAVING FOR SURGERY NOW. NO CURRENT NEEDS.
--- NOTE | 2018-11-16 13:01 | NUR ---
PT BACK FROM PROCEDURE AWAKE A&O LYING BACK IN BED RESTING QUIETLY WITH FAMILY SURROUNDING BEDSIDE. VSS AND BEING MONITERED PER POST PROCEDURE PROTOCOL. PT HAS 4 NEW LAP INCISIONS ALL WITH STERI-STRIPS AND BAND-AIDS CDI, NO S/S OF BLEEDING OR DRAINAGE NOTED. PT C/O SLIGHT PAIN AND FEELING BLOATED BUT STATES SHE FEELS OKAY OVERALL. PT IS HUNGRY AND NOW ON FULL LIQUID DIET, WILL HAVE LUNCH TRAY ORDERED. PT VOICED THANKS. NO CURRENT NEEDS. WILL CTM.
[2018-11-16] MEDS ORDERED: LEVAQUIN750 MG PO (13:32)
[2018-11-16] MEDS ORDERED: HYDROCODON-ACE1 EAC2 PO (15:35)
--- NOTE | 2018-11-16 15:58 | MORECARE ---
CASE MANAGEMENT DISCHARGE SUMMARY PATIENT: TANISHA RICHEY UNIT: [id number] ADM DATE: 11/14/18 AGE: 73 : 45 SEX: F ROOM/BED: D.2103 AUTHOR: KARLA JOEL PHYSICIAN: REFERRING PHYSICIAN: ZOEY SHABAZZ MD DATE OF SERVICE: 11/16/18 Discharge Plan Patient Name: TANISHA RICHEY Facility: [facility]:[place] : 1945 Planned Disposition: Home Anticipated Discharge Date: 11/16/18 Discharge Date: Expected LOS: 2 Initial Reviewer: [email or web address] Initial Review Date: 11/16/2018 Generated: 11/16/18 4:58 pm External Providers [facility] Next Contact Date: 11/16/2018 Service Request Date: Service Type: Resolution: Reviewer: Comments: Patient Name: TANISHA RICHEY Page [phone] at 1558 All edits/amendments must be made on the electronic document DICTATION DATE: 11/16/181556 WOOD MOLDER: GRAZYNA 11/16/18 155 RPT#: [id number] DE DATE: STATUS: ADM IN [facility] [address] [place] [address] END OF REPORT
--- NOTE | 2018-11-16 16:08 | MORECARE ---
CASE MANAGEMENT DISCHARGE SUMMARY PATIENT: TANISHA RICHEY UNIT: [id number] ADM DATE: 11/14/18 AGE: 73 : 45 SEX: F ROOM/BED: D.2103 AUTHOR: MARYCRUZ,DOC PHYSICIAN: REFERRING PHYSICIAN: ZOEY SHABAZZ MD DATE OF SERVICE: 11/16/18 Discharge Plan Patient Name: TANISHA RICHEY Facility: [facility]:[place] : 1945 Planned Disposition: Home Anticipated Discharge Date: 11/16/18 Discharge Date: Expected LOS: 2 Initial Reviewer: [id number] Initial Review Date: 11/16/2018 Generated: 11/16/18 5:07 pm Comments DCP- Discharge Planning Updated by [email or web address]: Earl Yi on 11/16/18 3:[address] Patient Name: TANISHA RICHEY Admission Status: ER Accout number: [id number] Admission Date: 11-14-2018 : 1945 Admission Diagnosis:EPIGASTRIC PAIN Attending: MELE, Current LOS: 2 Anticipated DC Date: 11-16-2018 Planned Disposition: Home Primary Insurance: [facility] PPO Discharge Planning Comments: CM MET WITH PT AND SPOUSE IN ROOM TO DISCUSS DISCHARGE PLANNING AND NEEDS. TANISHA RICHEY provided verbal consent to discuss current and ongoing needs with/in the presence of: SPOUSE, MARK. PT REPORTS LIVING AT HOME INDEPENDENTLY WITH HER SPOUSE; PT'S SPOUSE ARRANGES BOTH OF THEIR MEDICATIONS IN WEEKLY BOXES. PT HAS ROLLING WALKER WITH SEAT AND BRAKES, HURRICANE CANE AND AN OLD STANDARD WALKER SHE OBTAINED USED THAT IS "RICKETY" AND WANTS NEW WALKER. PT USES [facility] FOR MEDICAL EQUIPMENT. PT HAS NO OUTSIDE SERVICES ASSISTING IN THE HOME. CM DISCUSSED AVAILABILITY OF HOME HEALTH, REHAB SERVICES AND MEDICAL EQUIPMENT. PT DENIES DISCHARGE NEEDS OTHER THAN A NEW WALKER TO USE OUTSIDE THE HOME HER ROLLING WALKER IS TOO HEAVY TO TAKE IN THE CAR. CM OBTAINED WALKER ORDER, CALLED [facility], SPOKE TO ANN AND FAXED REFERRAL TO [facility]. PT'S SPOUSE REPORTS HE WILL PICK IT UP FROM THE STORE. PT'S SPOUSE IS HERE TO PICK PT UP FOR DISCHARGE HOME. PT TO DISCHARGE HOME WITH SPOUSE, DENIES NEED OF THERAPY SERVICES OR HOME HEALTH. PT TO DIE MAKER WALKER AT [facility]. SPOUSE TO TRANPORT HOME. Fur Dyer: Earl Yi DCPIA - Discharge Planning Initial Assessment Updated by [email or web address]: Earl Yi on 11/16/18 4:00 pm * Is the patient Alert and Oriented? Yes * How many steps to enter\\exit or inside your home? RAMP * PCP DR. SHABAZZ * Pharmacy [facility] [address] * Preadmission Environment Home with Family * ADLs Partial Dependent * Partial ADLs (Assistance needed) Medication Management * Equipment Cane Rolling Walker * Other Equipment [facility] - PROVIDER * List name and contact numbers for known caregivers / representatives who currently or will assist patient after discharge: MARK RICHEY, SPOUSE, * Verbal permission to speak to the caregivers and representatives has been obtained from the patient. Yes * Community resources currently utilized None * Please name any agencies selected above. NONE * Additional services required to return to the preadmission environment? No * Can the patient safely return to the preadmission environment? Yes * Has this patient been hospitalized within the prior 30 days at any hospital? No Last DP export: 11/16/18 2:58 pm Patient Name: TANISHA RICHEY Page [id number] at 1608 All edits/amendments must be made on the electronic document DICTATION DATE: 11/16/181606 HYDRO PLANT SITE MANAGER: GRAZYNA 11/16/181606 RPT#: [id number] [place] DATE: STATUS: ADM IN [facility] [address] [place] [address] END OF REPORT
[2018-11-16 17:16] VITALS: BP 136/54
--- NOTE | 2018-11-16 19:23 | NUR ---
DISCHARGE TEACHING PROVIDED AND PAPERS SIGNED. PT VERBALIZED UNDERSTANDING AND DENY ANY QUESTIONS OR CONCERNS. D/C PTS R.FA PIV WITH CATHETER TIP FULLY INTACT. ALL BELONGINGS COLLECTED AND SENT WITH . DOWNSTAIRS WAITING ON HER FOR TRANSPORTATION. [facility] AT BEDSIDE AND ESCORTED PT OUT VIA W/C. NO FURTHER NEEDS.
== END 2018-11-16 19:25 | disposition home or self-care (01) | DRG 418 ==
LOC: D.ER 18:12 → D.M2 21:42 → D.EDHOLD 21:42 → D.M2 22:10
PROVIDERS: Emergency Medicine; Family Medicine; Internal Medicine Nephrology; Surgery; ADMIT Family Medicine; ATTEND Family Medicine
PROC: 0FB04ZX Excision of Liver, Percutaneous Endoscopic Approach, Diagnostic (ICD-10-PCS; 2018-11-16)
PROC: 0FT44ZZ Resection of Gallbladder, Percutaneous Endoscopic Approach (ICD-10-PCS; principal; 2018-11-16 13:30)
DX: K80.00 Calculus of gallbladder with acute cholecystitis without obstruction (principal); N17.9 Acute kidney failure, unspecified; F10.10 Alcohol abuse, uncomplicated; I10 Essential (primary) hypertension; K21.9 Gastro-esophageal reflux disease without esophagitis; F41.9 Anxiety disorder, unspecified; F32.9 Major depressive disorder, single episode, unspecified; T88.7XXA Unspecified adverse effect of drug or medicament, initial encounter; T40.2X5A Adverse effect of other opioids, initial encounter; T36.0X5A Adverse effect of penicillins, initial encounter; D50.9 Iron deficiency anemia, unspecified